=== PATIENT | female | born 1995 | race Two or more races ===

== ENCOUNTER 2019-12-11 10:41 | Outpatient (CLI) | payer OTHER | END 2019-12-11 13:18 | disposition home or self-care (01) | LOC: OFIC 805 10:41 | DX: H90.3 Sensorineural hearing loss, bilateral (principal); H61.23 Impacted cerumen, bilateral ==

== ENCOUNTER 2020-03-21 05:56 | Day surgery (SDC) | payer OTHER | END 2020-03-21 10:45 | disposition home or self-care (01) | LOC: AMB-ENDOS 05:56 → ADM 15:00 → AMB-ENDOS 15:00 | PROVIDERS: ATTEND Colon & Rectal Surgery | DX: K62.89 Other specified diseases of anus and rectum (principal); K64.1 Second degree hemorrhoids ==